=== PATIENT | female | born 1955 | race Caucasian/White ===

== ENCOUNTER 2020-06-27 08:11 | Emergency (ER) | payer MEDICAID, OTHER ==
[~2020-06-27] VITALS: Ht 157.5 cm; Wt 65.8 kg
[~2020-06-27 08:11] MED LIST: ASPI81TA31 PO; CARV3.122 PO; CLON1TAB12 PO; FLUO20CA36 PO; Furosemide PO; Lisinopril PO
[2020-06-27] MEDS ORDERED: VANCOMYCIN IV 1,000 MG in IV DEXTROSE 5% 250 ML IV ONE (08:45)
[2020-06-27] MEDS ORDERED: LORAZEPAM 2 MG/1 ML VIAL IV ONE (08:45)
[2020-06-27] MEDS ORDERED: VANCOMYCIN IV 200 ML ONE (08:51)
[2020-06-27] MEDS ORDERED: LORAZEPAM 2 MG/1 ML VIAL ONE (08:55)
--- NOTE | 2020-06-27 09:55 | NUR ---
Pt states she feels much better. Pt is no longer anxious. Vanco infusing with no A/R noted.
[2020-06-27 10:54] VITALS: BP 132/74
--- NOTE | 2020-06-27 10:54 | NUR ---
Patient discharged to home in stable condition. Written and verbal after care instructions given. Patient verbalizes understanding of instructions. Stressed follow up or return to ER for worsening s/s.
== END 2020-06-27 10:55 | disposition home or self-care (01) ==
LOC: ER 08:11
DX: L98.491 Non-pressure chronic ulcer of skin of other sites limited to breakdown of skin (principal); F41.9 Anxiety disorder, unspecified; Z88.5 Allergy status to narcotic agent; Z88.2 Allergy status to sulfonamides; Z79.82 Long term (current) use of aspirin; Z79.899 Other long term (current) drug therapy; Z98.890 Other specified postprocedural states
CPT/HCPCS: 93005; 96365; 96375; 99284; J2060; J3370; A4663

== ENCOUNTER 2022-03-03 10:06 | Emergency (ER) | payer OTHER ==
[~2022-03-03] VITALS: Ht 154.9 cm; Wt 52.2 kg
[2022-03-03] MEDS ORDERED: diphenhydrAMINE 50 MG/1 ML VIAL IV ONE (11:15)
[2022-03-03] MEDS ORDERED: PROCHLORPERAZINE EDISYLATE 10 MG/2 ML VIAL IV ONE (11:15)
[2022-03-03] MEDS ORDERED: diphenhydrAMINE 50 MG/1 ML VIAL ONE (11:17)
[2022-03-03] MEDS ORDERED: PROCHLORPERAZINE EDISYLATE 10 MG/2 ML VIAL ONE (11:17)
--- NOTE | 2022-03-03 11:30 | NUR ---
Pt has been crying out loud since arrival, causing disturbance to other pts.
[2022-03-03 12:07] LABS: HEMATOCRIT 39.5 % (31.2-41.9); MEAN CORPUSCULAR HEMOGLOBIN 32.1 uug (24.7-32.8); MEAN CORPUSCULAR VOLUME 95.4 fL (75.5-95.3); PLATELET COUNT (AUTO) 462 K/uL (179-408)
--- NOTE | 2022-03-03 12:28 | NUR ---
Pt is hard IV stick, unsuccessful. Administered meds IM, okay per .
[2022-03-03 12:41] LABS: CARBON DIOXIDE 27 mmol/L (21-32); CHLORIDE 99 mmol/L (98-107); GLUCOSE 112 mg/dL (74-106); POTASSIUM 4.2 mmol/L (3.5-5.1); UREA NITROGEN, BLOOD 15 mg/dL (7-18)
[2022-03-03 12:46] LABS: LIPASE 34 U/L (73-393)
[2022-03-03 12:50] LABS: ALANINE AMINOTRANSFERASE 18 U/L (14-59); ALKALINE PHOSPHATASE 113 U/L (50-136); ASPARTATE AMINOTRANSFERASE 12 U/L (15-37); BILIRUBIN,DIRECT 0.2 mg/dL (0.0-0.2); BILIRUBIN,TOTAL 0.8 mg/dL (0.2-1.0); TOTAL PROTEIN, SERUM 7.8 g/dL (6.4-8.2)
[2022-03-03] MEDS ORDERED: ONDANSETRON ODT 4 MG TAB.RAPDIS SL ONE (17:00)
[2022-03-03 18:19] VITALS: BP 100/75
== END 2022-03-03 18:21 | disposition home or self-care (01) ==
LOC: ER 10:06
DX: R11.0 Nausea (principal); Z90.49 Acquired absence of other specified parts of digestive tract; J44.9 Chronic obstructive pulmonary disease, unspecified; I50.9 Heart failure, unspecified; F43.10 Post-traumatic stress disorder, unspecified; I42.9 Cardiomyopathy, unspecified; I11.0 Hypertensive heart disease with heart failure; Z88.5 Allergy status to narcotic agent; Z88.2 Allergy status to sulfonamides; F17.210 Nicotine dependence, cigarettes, uncomplicated; E78.5 Hyperlipidemia, unspecified; Z20.822 Contact with and (suspected) exposure to COVID-19; Z79.899 Other long term (current) drug therapy; I44.0 Atrioventricular block, first degree
CPT/HCPCS: 99285; 74176; 71045; 87426; 80076; 80048; 83880; 83690; 85025; 84484; 36415; 93005; 96372 ×2; J1200; J0780; A4663